=== PATIENT | male | born 1950 | race Caucasian/White ===

== ENCOUNTER → 2019-01-30 | Outpatient (CLI) | payer MEDICARE ==
[~2019-01-30] MED LIST: GABA600 PO; HYDACE5325 PO; HYDCHL12.5; LISI5; NAPR500 PO
== END | disposition home or self-care (01) ==
LOC: PLD 14:07 → LAB SHORT 14:07
DX: D48.5 Neoplasm of uncertain behavior of skin (principal)
CPT/HCPCS: 88305

== ENCOUNTER → 2019-08-24 | Outpatient (CLI) | payer MEDICARE | END | disposition home or self-care (01) | LOC: PLD 12:10 → LAB SHORT 12:10 | DX: D48.5 Neoplasm of uncertain behavior of skin (principal) | CPT/HCPCS: 88305 ==

== ENCOUNTER → 2020-02-22 | Outpatient (CLI) | payer OTHER, MEDICARE | END | disposition home or self-care (01) | LOC: LAB SHORT 11:56 → PLD 11:56 | DX: D48.5 Neoplasm of uncertain behavior of skin (principal) | CPT/HCPCS: 88305 ==

== ENCOUNTER 2020-03-14 00:22 | Day surgery (SDC) | payer MEDICARE ==
[2020-05-01] MEDS ORDERED: GABA300 PO (11:12)
[2020-05-01] MEDS ORDERED: LISI5 PO (11:12)
[2020-05-01] MEDS ORDERED: ATOR20 PO (11:13)
[2020-05-01] MEDS ORDERED: Norco 10-325 T1 EACH PO (11:13)
[2020-05-01] MEDS ORDERED: VITAMIN D310 MC4 PO (11:13)
[2020-05-01] MEDS ORDERED: [UNRECOGNIZED DRUG - OTHER] INJ (11:14)
[2020-05-01] MEDS ORDERED: FISH OIL PO (11:14)
[2020-05-01] MEDS ORDERED: FENO160 PO (11:14)
== END 2020-03-14 23:01 | disposition home or self-care (01) ==
LOC: WOUND 00:22
DX: I87.2 Venous insufficiency (chronic) (peripheral) (principal); J45.909 Unspecified asthma, uncomplicated
CPT/HCPCS: G0463

== ENCOUNTER 2020-03-21 00:19 | Day surgery (SDC) | payer OTHER ==
[2020-05-01] MEDS ORDERED: GABA300 PO (11:12)
[2020-05-01] MEDS ORDERED: LISI5 PO (11:12)
[2020-05-01] MEDS ORDERED: ATOR20 PO (11:13)
[2020-05-01] MEDS ORDERED: Norco 10-325 T1 EACH PO (11:13)
[2020-05-01] MEDS ORDERED: VITAMIN D310 MC4 PO (11:13)
[2020-05-01] MEDS ORDERED: FENO160 PO (11:14)
[2020-05-01] MEDS ORDERED: FISH OIL PO (11:14)
[2020-05-01] MEDS ORDERED: [UNRECOGNIZED DRUG - OTHER] INJ (11:14)
== END 2020-03-21 22:48 | disposition home or self-care (01) ==
LOC: WOUND 00:19
DX: I87.2 Venous insufficiency (chronic) (peripheral) (principal); J45.909 Unspecified asthma, uncomplicated

== ENCOUNTER 2020-03-25 08:28 | Day surgery (SDC) | payer BC ==
[2020-05-01] MEDS ORDERED: LISI5 PO (11:12)
[2020-05-01] MEDS ORDERED: GABA300 PO (11:12)
[2020-05-01] MEDS ORDERED: VITAMIN D310 MC4 PO (11:13)
[2020-05-01] MEDS ORDERED: ATOR20 PO (11:13)
[2020-05-01] MEDS ORDERED: Norco 10-325 T1 EACH PO (11:13)
[2020-05-01] MEDS ORDERED: FISH OIL PO (11:14)
[2020-05-01] MEDS ORDERED: FENO160 PO (11:14)
[2020-05-01] MEDS ORDERED: [UNRECOGNIZED DRUG - OTHER] INJ (11:14)
== END 2020-03-25 22:50 | disposition home or self-care (01) ==
LOC: WOUND 08:28
DX: I87.2 Venous insufficiency (chronic) (peripheral) (principal); J45.909 Unspecified asthma, uncomplicated

== ENCOUNTER 2020-03-29 00:44 | Day surgery (SDC) | payer BC ==
[2020-05-01] MEDS ORDERED: GABA300 PO (11:12)
[2020-05-01] MEDS ORDERED: LISI5 PO (11:12)
[2020-05-01] MEDS ORDERED: Norco 10-325 T1 EACH PO (11:13)
[2020-05-01] MEDS ORDERED: ATOR20 PO (11:13)
[2020-05-01] MEDS ORDERED: VITAMIN D310 MC4 PO (11:13)
[2020-05-01] MEDS ORDERED: FISH OIL PO (11:14)
[2020-05-01] MEDS ORDERED: [UNRECOGNIZED DRUG - OTHER] INJ (11:14)
[2020-05-01] MEDS ORDERED: FENO160 PO (11:14)
== END 2020-03-29 23:21 | disposition home or self-care (01) ==
LOC: WOUND 00:44
DX: I87.2 Venous insufficiency (chronic) (peripheral) (principal); R60.0 Localized edema; J45.909 Unspecified asthma, uncomplicated

== ENCOUNTER 2020-05-14 06:23 | Day surgery (SDC) | payer OTHER ==
[~2020-05-14] VITALS: Ht 175.3 cm; Wt 93.3 kg
[~2020-05-14 06:23] MED LIST changes: +ATOR20 PO; +FENO160 PO; +FISH OIL PO; +GABA300 PO; +LISI5 PO; +Norco 10-325 T1 EACH PO; +VITAMIN D310 MC4 PO; +[UNRECOGNIZED DRUG - OTHER] INJ
--- NOTE | 2020-05-14 06:48 | NUR ---
Ambulatory in Day Surgery WITH CRUTCHES History, Chart, Medications and Allergies reviewed before start of procedure. Patient confirms NPO status and agrees with scheduled surgery.
--- NOTE | 2020-05-14 09:01 | NUR ---
UP TO BATHROOM USED URINAL AT THIS TIME
--- NOTE | 2020-05-14 14:01 | NUR ---
PATIENT TO ROOM AT 13:45, GROGGY BUT AROUSABLE. VSS ON 4 L NC. DENIES ANY DISCOMFORT.
--- NOTE | 2020-05-14 14:59 | NUR ---
PT ARRIVED TO UNIT FROM PACU AT APROX 1345. PT APPEARS TO BE RESTING COMFORTABLY, O2 SAT 96% ON 4L NC. AQUACEL DRESSING TO L KNEE C/D/I, POLAR PACK IN PLACE. CAP REFILL WNL. HX R BKA.
--- NOTE | 2020-05-14 18:33 | NUR ---
SHIFT SUMMARY PT POD 0 L TKA. AQUACEL DRESSING C/D/I, POLAR PACK IN PLACE. PT HAS HX R BKA, STUMP DRESSING IN PLACE PROSTHESIS IN ROOM. PT HAS DENIED PAIN SINCE ARRIVAL TO UNIT. VOIDED 200 POST OP. PLAN IS TO DC HOME TOMORROW IF MEETS THERAPY GOALS.
[2020-05-15 05:34] LABS: BASOPHILS ABSOLUTE AUTO 0.02 K/mm3 (0.00-0.23); BASOPHILS PERCENT AUTO 0 % (0-2); EOSINOPHILS ABSOLUTE AUTO 0.03 K/mm3 (0.00-0.68); EOSINOPHILS PERCENT AUTO 0 % (0-6); Hematocrit 37.1 % (37.0-53.0); Hemoglobin 11.8 g/dL (13.5-17.5); IMMATURE GRAN ABSOLUTE AUTO 0.03 K/mm3 (0.00-0.10); IMMATURE GRAN PERCENT AUTO 0 % (0-1); LYMPHOCYTES PERCENT AUTO 10 % (21-46); MONOCYTES ABSOLUTE AUTO 1.08 K/mm3 (0.16-1.47); MONOCYTES PERCENT AUTO 10 % (4-13); Mean Corpuscular HGB 30.1 pg (26.0-34.0); Mean Corpuscular HGB Conc 31.8 g/dL (31.5-36.5); Mean Corpuscular Volume 95 fL (80-100); NEUTROPHILS ABSOLUTE AUTO 8.31 K/mm3 (1.96-9.15); NEUTROPHILS PERCENT AUTO 79 % (41-73); Platelet Count 208 K/mm3 (150-400); RDW Coefficient Variation 14.1 % (11.7-14.2); RDW Standard Deviation 48.7 fL (35.1-46.3); Red Blood Cell Count 3.92 M/mm3 (4.30-5.90); White Blood Cell Count 10.57 K/mm3 (4.00-11.30)
--- NOTE | 2020-05-15 05:50 | NUR ---
SHIFT SUMMARY POD 1 S/P LEFT TKA, DRESSING APPEARS CDI WITH POLAR LUBA IN PLACE. RIGHT AKA STUMP SOCK IN PLACE. PT ABLE TO REPOSITION SHELF IN BED WITH MIN ASSITANCE NEEDED. DECLINED AMBULATION DESPITE EDU/ENCOURAGEMENT. PAIN MANAGED WITH 2 OXY. BERENICE PO INTAKE. PLAN TO WORK WITH THERAPY THIS MORNING. PT CURRENTLY WATCHING TV IN BED WITH CALL LIGHT IN REACH . WILL CONT TO MONITOR FOR CHANGES AND GIVE REPORT TO ONCOMING RN.
[2020-05-15 06:04] LABS: Anion Gap 4 mmol/L (6-16); Blood Urea Nitrogen 25 mg/dL (8-24); CO2, Blood 27 mmol/L (21-32); Calcium, Blood 8.6 mg/dL (8.5-10.1); Chloride, Blood 109 mmol/L (98-108); Creatinine, Blood 1.25 mg/dL (0.60-1.20); Glomerular Filtration Rate >60 (60-); Glucose, Blood 144 mg/dL (70-99); Sodium, Blood 140 mmol/L (136-145)
[2020-05-15] MEDS ORDERED: ASPI81CH PO (13:16)
[2020-05-15] MEDS ORDERED: Percocet 5-3251 EACH PO (13:16)
--- NOTE | 2020-05-15 15:49 | NUR ---
DISCHARGE D/C TO HOME WITH SIGNIFICANT OTHER. DRSG REMAINS C/D/I, D/C INSTRUCTIONS & RX WERE GIVEN TO THE PT. IV REMOVED, TIP INTACT, PT ESCORTED TO VEHICLE VIA W/C. PT ENC TO F/U SARI FOR ANY PROBLEMS OR CONCERNS.
== END 2020-05-15 14:45 | disposition home or self-care (01) ==
LOC: ORSCMMR 06:23 → ORD 08:15 → ORSCMMR 08:30 → SURS 13:32 → ORSCMMR 05-15 14:45
PROVIDERS: Orthopaedic Surgery
PROC: 8E0Y0CZ Robotic Assisted Procedure of Lower Extremity, Open Approach (ICD-10-PCS; principal; 2020-05-14 08:30)
PROC: 0SRD0JA Replacement of Left Knee Joint with Synthetic Substitute, Uncemented, Open Approach (ICD-10-PCS; principal; 2020-05-14 08:30)
DX: M17.12 Unilateral primary osteoarthritis, left knee (principal); I10 Essential (primary) hypertension; J45.909 Unspecified asthma, uncomplicated; Z87.891 Personal history of nicotine dependence; Z79.899 Other long term (current) drug therapy
CPT/HCPCS: 27447; S2900; 36415; 73560-LT; 80048; 85025; 88300; 97110; 97116; 97162; C1776; J0171; J0360; J0690; J0735; J1100; J1885; J2250; J2405; J2704; J2795; J3010; J7120

== ENCOUNTER → 2020-08-26 | Outpatient (CLI) | payer MEDICARE ==
[~2020-08-26] MED LIST changes: +ASPI81CH PO; +Percocet 5-3251 EACH PO
== END | disposition home or self-care (01) ==
LOC: PLD 12:57 → LAB SHORT 12:57
DX: D48.5 Neoplasm of uncertain behavior of skin (principal)
CPT/HCPCS: 88305

== ENCOUNTER → 2020-11-28 | Outpatient (CLI) | payer MEDICARE | LOC: PLD 08:31 → LAB SHORT 08:31 | DX: D48.5 Neoplasm of uncertain behavior of skin (principal); C44.329 Squamous cell carcinoma of skin of other parts of face; Z88.0 Allergy status to penicillin | CPT/HCPCS: 88305 ==

== ENCOUNTER → 2022-03-16 | Outpatient (CLI) | payer MEDICARE | END | disposition home or self-care (01) | LOC: PLD 11:13 → LAB SHORT 11:13 | DX: D22.5 Melanocytic nevi of trunk (principal) | CPT/HCPCS: 88305 ==

== ENCOUNTER → 2023-01-18 | Outpatient (CLI) | payer MEDICARE ==
[2023-01-18 09:12] LABS: Source, Urine Clean Catch
[2023-01-18 12:52] LABS: Appearance, Urine Clear (Clear); Bilirubin, Urine Neg (Neg); Blood, Urine 1+ (Neg); Color, Urine Yellow (P-Yellow); Glucose Qualitative, Urine Neg (Neg); Ketones, Urine Neg (Neg); Leukocyte Esterase, Urine Neg (Neg); Nitrite, Urine Neg (Neg); Protein, Urine 2+ (Neg); Urobilinogen, Urine NORM (Normal)
[2023-01-18 13:06] LABS: Bacteria Rare /hpf; Calcium Oxalate Crystals Few /hpf; Mucus Light (0-Heavy); Squamous Epithelial Cells Few /hpf (Few); White Blood Cells, Urine 0-2 /hpf (0-5)
== END | disposition home or self-care (01) ==
LOC: LAB SHORT 09:05 → LAB 09:05
PROVIDERS: Nurse Practitioner Family
DX: N39.0 Urinary tract infection, site not specified (principal)
CPT/HCPCS: 81001